=== PATIENT | male | born 1955 | race Asian ===

== ENCOUNTER 2021-01-06 15:02 | Emergency (ER) | payer MEDICARE, OTHER ==
[~2021-01-06] VITALS: Ht 177.8 cm; Wt 99.8 kg
[2021-01-06 15:53] LABS: HEMATOCRIT 35.2 % (36.7-47.1); MEAN CORPUSCULAR HEMOGLOBIN 32.6 uug (23.8-33.4); MEAN CORPUSCULAR VOLUME 96.1 fL (73.0-96.2); PLATELET COUNT (AUTO) 81 K/uL (152-348)
[2021-01-06] MEDS ORDERED: LORAZEPAM 2 MG/1 ML VIAL ONE (15:57)
--- NOTE | 2021-01-06 15:58 | NUR ---
witnessed whole body seizure, pt also at bedside. er md notified.
[2021-01-06] MEDS ORDERED: LORAZEPAM 2 MG/1 ML VIAL IV ONE (16:00)
[2021-01-06] MEDS ORDERED: levETIRAcetam IV 500 MG in IV DEXTROSE 5% 100 ML IV ONE (16:00)
[2021-01-06 16:08] LABS: BILIRUBIN,DIRECT 0.3 mg/dL (0.0-0.2); BILIRUBIN,TOTAL 0.6 mg/dL (0.2-1.0); CREATININE 3.3 mg/dL (0.6-1.3); TOTAL PROTEIN, SERUM 5.3 g/dL (6.4-8.2)
--- NOTE | 2021-01-06 16:15 | NUR ---
pt back from ct.
[2021-01-06] MEDS ORDERED: levETIRAcetam 500 MG/5 ML VIAL IV ONE (16:17)
[2021-01-06 16:24] LABS: LYMPHOCYTES % (MANUAL) 3 % (20-40); MONOCYTES % (MANUAL) 1 % (2-10); NEUTROPHILS % (MANUAL) 96 % (42-75)
[2021-01-06] MEDS ORDERED: INSU100C4 SQ (16:33)
[2021-01-06] MEDS ORDERED: METO25TA6 PO (16:33)
[2021-01-06] MEDS ORDERED: DEXA4TAB PO (16:33)
[2021-01-06] MEDS ORDERED: CLOP75TA15 PO (16:33)
[2021-01-06] MEDS ORDERED: INSU100V7 SQ (16:33)
[2021-01-06] MEDS ORDERED: FERR325T28 PO (16:33)
[2021-01-06] MEDS ORDERED: PRAV80TA21 PO (16:33)
[2021-01-06] MEDS ORDERED: EZET10TA15 PO (16:33)
[2021-01-06] MEDS ORDERED: LOSA25TA27 PO (16:33)
[2021-01-06] MEDS ORDERED: ASPI81TA31 PO (16:33)
[2021-01-06] MEDS ORDERED: MULT-1196 PO (16:33)
[2021-01-06] MEDS ORDERED: TERA10CA4 PO (16:33)
[2021-01-06] MEDS ORDERED: AMLO-212 PO (16:33)
[2021-01-06] MEDS ORDERED: PANT40TA49 PO (16:33)
[2021-01-06] MEDS ORDERED: GLIP10TA11 PO (16:33)
[2021-01-06] MEDS ORDERED: OMEG-153 PO (16:33)
[2021-01-06] MEDS ORDERED: LEVE500T9 PO (16:48)
[2021-01-06 17:15] VITALS: BP 141/66
--- NOTE | 2021-01-06 17:37 | NUR ---
Patient discharged to home in stable condition. Written and verbal after care instructions given. Patient verbalizes understanding of instructions. Stressed follow up or return to ER for worsening s/s.pt accompanied by , will follow up with zhao. pt says feels better, deneis n/v or dizziness. pt able to talk in full sentences, vss.
== END 2021-01-06 17:39 | disposition home or self-care (01) ==
LOC: ER 15:02
DX: G40.A09 Absence epileptic syndrome, not intractable, without status epilepticus (principal); C79.31 Secondary malignant neoplasm of brain; C34.90 Malignant neoplasm of unspecified part of unspecified bronchus or lung; Z92.21 Personal history of antineoplastic chemotherapy; Z92.3 Personal history of irradiation; Z79.52 Long term (current) use of systemic steroids; Z79.82 Long term (current) use of aspirin; Z79.899 Other long term (current) drug therapy; C78.7 Secondary malignant neoplasm of liver and intrahepatic bile duct; D69.6 Thrombocytopenia, unspecified; N18.9 Chronic kidney disease, unspecified; R00.1 Bradycardia, unspecified
CPT/HCPCS: 36415; 70030-TC; 70450; 85025; 85730; 93005; A4663; J1953; J2060; J3490; J7060

== ENCOUNTER 2021-01-12 06:26 | Emergency (ER) | payer MEDICARE, OTHER ==
[~2021-01-12] VITALS: Ht 177.8 cm; Wt 99.8 kg
[~2021-01-12 06:26] MED LIST: AMLO-212 PO; ASPI81TA31 PO; CLOP75TA15 PO; DEXA4TAB PO; EZET10TA15 PO; FERR325T28 PO; GLIP10TA11 PO; INSU100C4 SQ; INSU100V7 SQ; LEVE500T9 PO; LOSA25TA27 PO; METO25TA6 PO; MULT-1196 PO; OMEG-153 PO; PANT40TA49 PO; PRAV80TA21 PO; TERA10CA4 PO
[2021-01-12] MEDS ORDERED: TRANEXAMIC ACID 1,000 MG/10 ML VIAL IR ONE (06:45)
[2021-01-12] MEDS ORDERED: OXYMETAZOLINE NASAL 0.05% 15 ML SPRAY NS ONE ×2 (06:45→06:50)
[2021-01-12] MEDS ORDERED: TRANEXAMIC ACID 1,000 MG/10 ML VIAL ONE (06:50)
--- NOTE | 2021-01-12 06:55 | NUR ---
ERMD placed right nares rhino rocket.
[2021-01-12 07:13] LABS: HEMATOCRIT 32.8 % (36.7-47.1); MEAN CORPUSCULAR HEMOGLOBIN 33.3 uug (23.8-33.4); MEAN CORPUSCULAR VOLUME 97.9 fL (73.0-96.2); PLATELET COUNT (AUTO) 83 K/uL (152-348)
[2021-01-12 07:18] LABS: CREATININE 3.4 mg/dL (0.6-1.3)
[2021-01-12 07:24] LABS: BILIRUBIN,TOTAL 0.5 mg/dL (0.2-1.0); TOTAL PROTEIN, SERUM 4.7 g/dL (6.4-8.2)
[2021-01-12 08:16] VITALS: BP 148/95
--- NOTE | 2021-01-12 08:20 | NUR ---
Patient discharged to home in stable condition with daughter taking. Written and verbal after care instructions given. Patient verbalizes understanding of instructions. Stressed follow up or return to ER for worsening s/s.
[2021-01-13] MEDS ORDERED: OMEP20TA20 PO (05:34)
[2021-01-13] MEDS ORDERED: INSU100V7 SQ (05:34)
== END 2021-01-12 08:38 | disposition home or self-care (01) ==
LOC: ER 06:31
DX: R04.0 Epistaxis (principal); E11.22 Type 2 diabetes mellitus with diabetic chronic kidney disease; N18.9 Chronic kidney disease, unspecified; Z79.4 Long term (current) use of insulin; C34.90 Malignant neoplasm of unspecified part of unspecified bronchus or lung; C78.7 Secondary malignant neoplasm of liver and intrahepatic bile duct; C79.31 Secondary malignant neoplasm of brain; J44.9 Chronic obstructive pulmonary disease, unspecified; I25.10 Atherosclerotic heart disease of native coronary artery without angina pectoris; Z79.02 Long term (current) use of antithrombotics/antiplatelets; Z79.899 Other long term (current) drug therapy
CPT/HCPCS: 30901; 36415; 85025; 85610; A4663

== ENCOUNTER 2021-01-13 03:53 | Emergency (ER) | payer MEDICARE, OTHER ==
[~2021-01-13] VITALS: Ht 177.8 cm; Wt 99.8 kg
--- NOTE | 2021-01-13 04:03 | NUR ---
Pt brought straight back to room ED1B by RA for CP/uncontrolled A.Fib, PMH of triple bipass, angioplasty, stage 4 lung CA. Pt AAOx3, lungs clear, HR elevated in the 130s-150s uncontroled A. Fib. Pt immediately dressed into gown, connected to bedside monitor, placed in pos of comfort on gurney. One nitro tab SL given by EDMD, SBP in 115. HR=85bpm after 150mg bolus of amniodarone. Pt denies any pain or discomfort at the present moment.
--- NOTE | 2021-01-13 04:10 | NUR ---
12 lead EKG performed without difficulty with a finding of uncontrolled A. fib.
[2021-01-13] MEDS ORDERED: ASPIRIN 81 MG TAB.CHEW PO ONE (04:30)
[2021-01-13] MEDS ORDERED: AMIODARONE HCL IV 900 MG in IV DEXTROSE 5% 500 ML IV ONE (04:30)
[2021-01-13] MEDS ORDERED: NITROGLYCERIN 0.4 MG/TAB BOTTLE SL ONE ×2 (04:30→04:37)
[2021-01-13] MEDS ORDERED: METOPROLOL TARTRATE 5 MG/5 ML VIAL IVP ONE (04:30)
[2021-01-13] MEDS ORDERED: AMIODARONE HCL IV 150 MG in IV DEXTROSE 5% 100 ML IV ONE (04:30)
[2021-01-13] MEDS ORDERED: NITROGLYCERIN OINT 1 GM PACKET TP ONE ×2 (04:30→04:52)
[2021-01-13 04:37] LABS: HEMATOCRIT 30.9 % (36.7-47.1); MEAN CORPUSCULAR HEMOGLOBIN 32.1 uug (23.8-33.4); MEAN CORPUSCULAR VOLUME 96.4 fL (73.0-96.2); PLATELET COUNT (AUTO) 80 K/uL (152-348)
[2021-01-13 04:43] LABS: CREATININE 3.6 mg/dL (0.6-1.3); POTASSIUM 4.4 mmol/L (3.5-5.1)
[2021-01-13] MEDS ORDERED: DEXAMETHASONE SOD PHOSPHATE 4 MG INJ IV ONE (04:45)
[2021-01-13 04:48] VITALS: BP 128/89
[2021-01-13] MEDS ORDERED: ASPIRIN 81 MG TAB.CHEW ONE (04:50)
[2021-01-13] MEDS ORDERED: DEXAMETHASONE SOD PHOSPHATE 4 MG INJ ONE (04:51)
[2021-01-13] MEDS ORDERED: AMIODARONE HCL 150 MG/3 ML VIAL IV ONE ×2 (04:53→04:57)
[2021-01-13 04:56] LABS: BILIRUBIN,DIRECT 0.3 mg/dL (0.0-0.2); BILIRUBIN,TOTAL 0.5 mg/dL (0.2-1.0); TOTAL PROTEIN, SERUM 4.8 g/dL (6.4-8.2)
[2021-01-13] MEDS ORDERED: IV NORMAL SALINE 500 ML BAG IV ONE (05:00)
[2021-01-13] MEDS ORDERED: OMEP20TA20 PO (05:34)
[2021-01-13] MEDS ORDERED: INSU100V7 SQ (05:34)
--- NOTE | 2021-01-13 06:54 | NUR ---
Pt resting comfortably on gurney dozing off to sleep with audible snoring. Waiting on [facility] transport team ETA [id number]. Accepted to [facility] ED under Dr. Yenny Hernandez. They have requested to include any records, Lab reports or CDs with the pt for transport.
--- NOTE | 2021-01-13 07:02 | NUR ---
Pt's son Matt called for an update on his dad's condition. His number is [phone]. Pt's is Trevon at . Son requested to be kept updated when his father is transfered.
--- NOTE | 2021-01-13 07:58 | NUR ---
[facility] ambulance here to order picker/assembler pt for transfer to [facility]. Pt is currently being prepared for transport. VSS, PE WNL, Pt denies any pain, nausea or discomfort. Pt has good color, temp and appearance. oxygenating and perfusing well. Report called to [facility] ED.
--- NOTE | 2021-01-13 08:19 | NUR ---
Pt loaded up on ambulance stretcher by garden tractor mechanic without incident. Pt tolerating well. No s/sx distress present. VSS, PE WNL. 115/71, 58bpm boarderline adry without ectopy. Pt oxygenating and perfusing well. Pt in good spirits aeb smiling, jovial demeanor. Pt enroute to [facility].
== END 2021-01-13 08:29 | disposition short-term general hospital (02) ==
LOC: ER 03:56
DX: I48.91 Unspecified atrial fibrillation (principal); I24.9 Acute ischemic heart disease, unspecified; I25.10 Atherosclerotic heart disease of native coronary artery without angina pectoris; Z95.5 Presence of coronary angioplasty implant and graft; C34.90 Malignant neoplasm of unspecified part of unspecified bronchus or lung; C79.31 Secondary malignant neoplasm of brain; Z20.822 Contact with and (suspected) exposure to COVID-19; C78.7 Secondary malignant neoplasm of liver and intrahepatic bile duct; Z79.02 Long term (current) use of antithrombotics/antiplatelets; Z79.899 Other long term (current) drug therapy; J44.9 Chronic obstructive pulmonary disease, unspecified; N18.9 Chronic kidney disease, unspecified; Z79.4 Long term (current) use of insulin
CPT/HCPCS: 36415; 71045; 80048; 80076; 83880; 84484; 85025; 85379; 85730; 87426; 93005; 96374; 96375; 99291; J0282; J1100; J7060; 70030-TC; A4663